=== PATIENT | male | born 1995 | race African-American/Black ===

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

== ENCOUNTER 2017-10-03 01:48 | Emergency (ER) | payer OTHER ==
[~2017-10-03] VITALS: Ht 175.3 cm; Wt 65.0 kg
[2017-10-03] MEDS ORDERED: IPRATROPIUM/ALBUTEROL 0.5-3(2.5)MG/3ML NEB HHN ONE (02:15)
[2017-10-03] MEDS ORDERED: PREDNISONE 20MG TABLET PO ONE (02:15)
[2017-10-03 03:37] VITALS: BP 112/67
== END 2017-10-03 03:50 | disposition home or self-care (01) ==
LOC: ER 01:48
DX: J45.901 Unspecified asthma with (acute) exacerbation (principal)
CPT/HCPCS: 71045; 94640; 99283; J7512; J7620